=== PATIENT | male | born 1945 | race Caucasian/White ===

== ENCOUNTER 2020-10-29 14:44 | Inpatient (IN) ==
[2020-10-29] MEDS ORDERED: NS 0.9% 1000 ml BAG 1,000 ML IV ONE (15:08)
[2020-10-29] MEDS ORDERED: Magnesium Hydroxide LIQ 30 ML UDC PO PRN (15:35)
[2020-10-29] MEDS ORDERED: diPHENhydraMINE 25 mg TAB PO PRN (15:35)
[2020-10-29] MEDS ORDERED: Lactulose 30 ml UDC PO PRN (15:35)
[2020-10-29] MEDS ORDERED: Ondansetron ODT 4 mg TAB 4 MG TAB PO PRN (15:35)
[2020-10-29] MEDS ORDERED: Morphine 2 MG/ML SYRINGE IV PRN (15:35)
[2020-10-29] MEDS ORDERED: Ondansetron 4 mg VIAL 2 MG/ML 2 ml VIAL IV PRN (15:35)
[2020-10-29] MEDS ORDERED: diPHENhydraMINE IV 50 MG/ML 1 ml VIAL (BENADRYL) IV PRN (15:35)
[2020-10-29] MEDS ORDERED: Lactated Ringers 1000 ml BAG 1,000 ML IV SCH (16:00)
[2020-10-29] MEDS ORDERED: Vancomycin per Pharmacy 1 EA NOTE FOLLOW UP SCH (16:00)
[2020-10-29 16:26] LABS: ABS Lymphocytes 1.3 10^3/ul (1.0-4.8); ABS Monocytes 0.6 10^3/ul (0-0.8); ABS Neutrophils 6.2 10^3/ul (1.5-7.7); Eosinophil % 0.5 %; Hematocrit 39 % (42-52); Hemoglobin 13.4 g/dL (14.0-18.0); Lymphocyte % 15.7 %; Mean Corpuscular HGB Conc 34 g/dL (31-36); Mean Corpuscular Hemoglobin 31 pg (27-31); Mean Corpuscular Volume 90 fL (80-94); Mean Platelet Volume 6.3 fL (7.4-10.4); Platelet Count 820 10^3/uL (150-450); Red Blood Count 4.36 10^6 /uL (4.18-5.48); Red Cell Distribution Width 14 % (10-15); White Blood Count 8.2 10^3/uL (3.5-10.8)
[2020-10-29] MEDS ORDERED: Vancomycin 1500 MG IV - x ONCE IVPB ONE (17:00)
[2020-10-29] MEDS ORDERED: Cefepime 1 GM IV - ED ONCE IV ONE (17:00)
[2020-10-29 17:01] LABS: Albumin 3.8 g/dL (3.2-5.2); BUN/Creatinine Ratio 17.7 (8-20); C Reactive Protein 42.14 mg/L (<8.01); Calcium 8.9 mg/dL (8.6-10.3); EGFR African American 92.9 (>60); EGFR Non-African American 76.8 (>60); Globulin 3.7 g/dL (2-4); Potassium 3.9 mmol/L (3.5-5.0); Total Bilirubin 0.4 mg/dL (0.2-1.0); Total Protein 7.5 g/dL (6.4-8.9)
[2020-10-29] MEDS ORDERED: Povidone Iodine 5% OPTH 30 ML BTL ONE (18:23)
[2020-10-29] MEDS ORDERED: Bupivacaine 0.25% SDV 30 ML ONE (18:23)
[2020-10-29 18:37] LABS: Erythrocyte Sed Rate 63 mm/Hr (0-19)
[2020-10-29] MEDS ORDERED: Succinylcholine 200 mg VIAL 20 mg/ml 10 ml VIAL (200 mg) ONE (19:04)
[2020-10-29] MEDS ORDERED: fentaNYL 100 mcg/2 ml 50 MCG/ML VIAL ONE ×2 (19:04→20:50)
[2020-10-29] MEDS ORDERED: Midazolam 2 mg/2 ml VIAL 1 mg/ml 2 ml VIAL (2 mg) ONE (19:04)
[2020-10-29] MEDS ORDERED: Propofol 10 MG/ML 20 ML BTL ONE (19:04)
[2020-10-29] MEDS ORDERED: Lidocaine 2% PF 5 ML VIAL ONE (19:04)
[2020-10-29] MEDS ORDERED: Vancomycin 1,000 MG VIAL ONE (19:28)
[2020-10-29] MEDS ORDERED: Phenylephrine 40 mcg/mL 10mL (400mcg) SYRINGE ONE (19:45)
[2020-10-29] MEDS ORDERED: Ondansetron 4 mg VIAL 2 MG/ML 2 ml VIAL ONE (19:53)
[2020-10-29] MEDS ORDERED: Dexamethasone IV 4 MG/ML VIAL 1 ml VIAL ONE (19:53)
[2020-10-29] MEDS ORDERED: Naloxone 0.4 mg VIAL 0.4 mg/ml 1 ml VIAL IV PRN (20:03)
[2020-10-29] MEDS ORDERED: DiMENhydriNATE IV 50 mg/ml 1 ml VIAL IV PUSH PRN (20:03)
[2020-10-29] MEDS: fentaNYL 100 mcg/2 ml 50 MCG/ML VIAL IV PRN ×2 (20:52→20:58)
[2020-10-29] MEDS: Magnesium Hydroxide LIQ 30 ML UDC PO SCH (23:59)
[2020-10-30 06:21] LABS: ABS Lymphocytes 0.8 10^3/ul (1.0-4.8); ABS Monocytes 0.4 10^3/ul (0-0.8); ABS Neutrophils 5.4 10^3/ul (1.5-7.7); Eosinophil % 0.1 %; Hematocrit 35 % (42-52); Hemoglobin 11.8 g/dL (14.0-18.0); Lymphocyte % 12.3 %; Mean Corpuscular HGB Conc 34 g/dL (31-36); Mean Corpuscular Hemoglobin 31 pg (27-31); Mean Corpuscular Volume 90 fL (80-94); Mean Platelet Volume 6.5 fL (7.4-10.4); Platelet Count 708 10^3/uL (150-450); Red Blood Count 3.84 10^6 /uL (4.18-5.48); Red Cell Distribution Width 14 % (10-15); White Blood Count 6.6 10^3/uL (3.5-10.8)
[2020-10-30 06:40] LABS: BUN/Creatinine Ratio 17.5 (8-20); C Reactive Protein 34.61 mg/L (<8.01); Calcium 8.3 mg/dL (8.6-10.3); EGFR African American 91.8 (>60); EGFR Non-African American 75.9 (>60); Potassium 4.3 mmol/L (3.5-5.0)
[2020-10-30] MEDS: Vitamin THERAPEUTIC TAB PO SCH (08:38)
[2020-10-30] MEDS: Heparin 5000 UNITS/ML 1 mL VIAL SUBCUT SCH ×2 (08:39→18:08)
[2020-10-30] MEDS: Vancomycin 1000 MG in NS 0.9% 250 ML IVPB SCH ×2 (08:40→22:56)
[2020-10-30] MEDS: Magnesium Hydroxide LIQ 30 ML UDC PO SCH ×3 (08:42→23:19)
[2020-10-30] MEDS ORDERED: Cefepime ADVAN 1 GM in NS 0.9% 50 ML 50 ML IVPB SCH (09:00)
[2020-10-30] MEDS: Cefepime 1 GM in Dextrose 1 GM/50 ML BAG IV SCH (10:25)
[2020-10-31] MEDS: Cefepime 1 GM in Dextrose 1 GM/50 ML BAG IV SCH ×2 (00:53→12:56)
[2020-10-31 05:46] LABS: Hematocrit 33 % (42-52); Hemoglobin 11.1 g/dL (14.0-18.0); Mean Platelet Volume 6.3 fL (7.4-10.4); Platelet Count 596 10^3/uL (150-450)
[2020-10-31 06:11] LABS: EGFR African American 97.6 (>60); EGFR Non-African American 80.6 (>60)
[2020-10-31] MEDS: Magnesium Hydroxide LIQ 30 ML UDC PO SCH ×2 (09:54→21:11)
[2020-10-31] MEDS: Vitamin THERAPEUTIC TAB PO SCH (09:55)
[2020-10-31] MEDS ORDERED: Vancomycin 1000 MG in NS 0.9% 250 ML IVPB SCH (11:00)
[2020-10-31] MEDS ORDERED: Propofol 10 MG/ML 20 ML BTL ONE (15:38)
[2020-10-31] MEDS ORDERED: Povidone Iodine 5% OPTH 30 ML BTL ONE (15:38)
[2020-10-31] MEDS ORDERED: Glycopyrrolate IV 0.2 MG/ML 1 ML VIAL ONE (15:38)
[2020-10-31] MEDS ORDERED: Bupivacaine 0.25% SDV PF 10 ML VIAL INJ ONE (15:38)
[2020-10-31] MEDS ORDERED: fentaNYL 100 mcg/2 ml 50 MCG/ML VIAL ONE ×2 (15:38→17:14)
[2020-10-31] MEDS ORDERED: Vancomycin 1,000 MG VIAL ONE (15:38)
[2020-10-31] MEDS ORDERED: EPHEDrine (Pressors) 50 MG/ML VIAL ONE (16:02)
[2020-10-31] MEDS ORDERED: Dexamethasone IV 4 MG/ML VIAL 1 ml VIAL ONE (16:42)
[2020-10-31] MEDS ORDERED: Ondansetron 4 mg VIAL 2 MG/ML 2 ml VIAL ONE (16:42)
[2020-10-31] MEDS ORDERED: Naloxone 0.4 mg VIAL 0.4 mg/ml 1 ml VIAL IV PRN (17:06)
[2020-10-31] MEDS ORDERED: Ondansetron 4 mg VIAL 2 MG/ML 2 ml VIAL IV PRN (17:06)
[2020-10-31] MEDS ORDERED: HYDROcodone/ACETAMIN 5/325 mg TAB PO PRN (17:12)
[2020-10-31] MEDS: fentaNYL 100 mcg/2 ml 50 MCG/ML VIAL IV PRN ×4 (17:16→17:48)
[2020-10-31] MEDS ORDERED: HYDROcodone/ACETAMIN 5/325 mg TAB ONE (17:30)
[2020-11-01] MEDS: Cefepime 1 GM in Dextrose 1 GM/50 ML BAG IV SCH ×2 (01:17→13:14)
[2020-11-01 05:57] LABS: Hematocrit 32 % (42-52); Hemoglobin 10.9 g/dL (14.0-18.0); Mean Platelet Volume 6.7 fL (7.4-10.4); Platelet Count 611 10^3/uL (150-450)
[2020-11-01] MEDS: Magnesium Hydroxide LIQ 30 ML UDC PO SCH ×2 (08:05→21:18)
[2020-11-01] MEDS: Vitamin THERAPEUTIC TAB PO SCH (08:05)
[2020-11-01] MEDS ORDERED: Vancomycin Trough Check NOTE FOLLOW UP ONE (10:30)
[2020-11-01 11:10] LABS: EGFR African American 88.6 (>60); EGFR Non-African American 73.2 (>60)
[2020-11-02] MEDS: Cefepime 1 GM in Dextrose 1 GM/50 ML BAG IV SCH ×2 (01:10→13:36)
[2020-11-02 06:48] LABS: Hematocrit 36 % (42-52); Hemoglobin 11.7 g/dL (14.0-18.0); Mean Platelet Volume 6.5 fL (7.4-10.4); Platelet Count 586 10^3/uL (150-450)
[2020-11-02] MEDS: Vitamin THERAPEUTIC TAB PO SCH (09:49)
[2020-11-02] MEDS: Magnesium Hydroxide LIQ 30 ML UDC PO SCH ×2 (11:57→21:06)
[2020-11-03] MEDS: Cefepime 1 GM in Dextrose 1 GM/50 ML BAG IV SCH (02:24)
[2020-11-03 05:55] LABS: Hematocrit 38 % (42-52); Hemoglobin 12.8 g/dL (14.0-18.0); Mean Platelet Volume 6.4 fL (7.4-10.4); Platelet Count 616 10^3/uL (150-450)
[2020-11-03] MEDS: Cefepime 2 GM in Dextrose 2 GM/50 ML BAG IV SCH ×2 (09:38→20:38)
[2020-11-03] MEDS: Vitamin THERAPEUTIC TAB PO SCH (09:39)
[2020-11-03] MEDS: Magnesium Hydroxide LIQ 30 ML UDC PO SCH ×2 (11:50→20:47)
[2020-11-04 03:30] VITALS: BP 103/65
[2020-11-04] MEDS: Magnesium Hydroxide LIQ 30 ML UDC PO SCH (10:43)
[2020-11-04] MEDS: Cefepime 2 GM in Dextrose 2 GM/50 ML BAG IV SCH (10:43)
[2020-11-04] MEDS: Vitamin THERAPEUTIC TAB PO SCH (10:43)
== END 2020-11-04 12:26 | disposition home or self-care (01) | DRG 858 ==
LOC: ED 14:44 → SSU 15:35
PROVIDERS: ADMIT Orthopaedic Surgery; ATTEND Orthopaedic Surgery